=== PATIENT | female | born 1995 | race Caucasian/White ===

== ENCOUNTER 2024-06-02 13:15 | Emergency (ER) | payer BC ==
--- NOTE | 2024-06-02 13:27 | ERPHSYRPT ---
- History of Present Illness Time Seen by Provider: 06/02/24 13:27 Source: patient Exam Limitations: no limitations Physician History: This is a 28-year-old white female patient of provider Chadd who has had chronic right jaw pain with suspected infection and who is undergoing an outpatient submandibular right node biopsy on 06/04/2024 and presents today with worsening left jaw pain over the last 2 weeks. Overall, the patient has had these symptoms of jaw pain, first on the right side approximately 1 month ago and now on the left side in the last 2 weeks. Patient has been on several different antibiotics over this timeframe. Patient drove herself into the emergency department today and does not want any narcotics. Patient has a history of anxiety. She has not had fever, night sweats or chills. Timing/Duration: gradual onset Severity: mild Prearrival Treatment: no prearrival treatment Modifying Factors: Improves With: nothing Associated Symptoms: jaw pain (Bilateral), No tooth pain Allergies/Adverse Reactions: dexamethasone Allergy (Verified 06/02/24 13:25) Difficulty Breathing Home Medications: Buspirone HCl 5 mg [Buspar 5 mg] 10 mg PO DAILY 06/02/24 [History] Pnv No.95/Ferrous Fum/Folic AC [ Vitamins Tablet] 1 tab PO DAILY 06/02/24 [History] Travel Risk - International Travel Have you traveled outside of the country in past 3 weeks: No - Emerging Infectious Disease Are you exhibiting symptoms associated with any current EIDs: No - Review of Systems Constitutional: No Symptoms Eyes: No Symptoms Ears, Nose, & Throat: No Symptoms, Other (Bilateral jaw pain.), No Mouth Pain, No Throat Pain, No Hoarse, No Painful Swallowing, No Stridor Respiratory: No Symptoms Cardiac: No Symptoms Abdominal/Gastrointestinal: No Symptoms Genitourinary Symptoms: No Symptoms Musculoskeletal: No Symptoms Skin: No Symptoms Neurological: No Symptoms Psychological: No Symptoms Endocrine: No Symptoms Hematologic/Lymphatic: No Symptoms Immunological/Allergic: No Symptoms All Other Systems: Reviewed and Negative - Past Medical History Pertinent Past Medical History: No Psycho-Social History: Anxiety - Nursing Vital Signs Nursing Vital Signs: Initial Vital Signs Temperature 97.7 F 06/02/24 13:20 Pulse Rate 71 06/02/24 13:20 Respiratory Rate 18 06/02/24 13:20 Blood Pressure 133/90 06/02/24 13:20 O2 Sat by Pulse Oximetry 99 06/02/24 13:20 Pain Scale Pain Intensity 8 - Physical Exam General Appearance: no apparent distress, alert, anxiety Eye Exam: bilateral eye: normal inspection, PERRL, EOMI Ear Exam: bilateral ear: auricle normal Nasal Exam: normal inspection Throat Exam: normal, moist mucus membranes, No pharynx normal, No dental tenderness Neck Exam: lymphadenopathy (R) (Questionable right submandibular), No lymphadenopathy (L) Cardiovascular/Respiratory Exam: chest non-tender, no respiratory distress Abdominal Exam: non-tender Neurologic Exam: alert, oriented x 3, sensation nml Skin Exam: normal color, warm, dry SpO2 Interpretation: normal O2 Delivery: Room Air - Course Nursing assessment & vital signs reviewed: Yes Ordered Tests: Active Orders 24 hr Category Date Time Status FACIAL BONES WO CONTRAST [CT] Stat Exams 06/02/24 13:27 Completed NECK WO CONTRAST [CT] Stat Exams 06/02/24 13:28 Completed Medication Summary Discontinued Medications Generic Name Dose Route Start Last Admin Trade Name Lor PRN Reason Stop Dose Admin Ketorolac Tromethamine 60 mg 06/02/24 13:41 06/02/24 13:56 Ketorolac Tromethamine 30 Mg/Ml Inj IM 06/02/24 13:42 60 mg STAT ONE Administration Ketorolac Tromethamine Confirm 06/02/24 13:54 Ketorolac Tromethamine 30 Mg/Ml Inj Administered 06/02/24 13:55 Dose 60 mg .ROUTE .STK-MED ONE - Progress Progress: unchanged Progress Note: 06/02/24 13:51 My medical decision making and the assignment of low complexity to this patient's medical issue today is based on review of the patient's past medical history, review of the patient's medication list, review the patient drug allergy list, history present illness and physical findings on examination The patient does not require any laboratory data. However, we will order a CT scan of the face and soft tissue of the neck both without contrast. Differential diagnosis includes but is not limited to lymphadenopathy, m andibular fractures, subcutaneous infection/abscesses 06/02/24 14:[address] scan of the facial bones was interpreted by the radiologist and I reviewed the impression. The impression states normal appearing TMJ bilaterally. No evidence of fractures. No evidence of joint effusion, degenerative changes or dislocations. Soft tissue of the face are normal. CT scan of the neck/soft tissues was interpreted by the radiologist and I reviewed the impression. The impression states bilateral neck reactive looking lymphadenopathy. Counseled pt/family regarding: diagnosis, need for follow-up, rad results Medical Desision Making - Diagnostic Testing Diagnostic test were ordered, analyzed, and reviewed by me: No Radiological Interpretation: Reviewed by me, Teleradiologist Report - Risk of complications Minimal Risk: Minimal risk of morbidity - Departure Departure Disposition: Home Clinical Impression: Submandibular lymphadenopathy Condition: Stable Critical Care Time: No Referrals: EMMA CONDON FNP [Primary Care Provider] - Follow up/PCP as directed Additional Instructions: Drink plenty of fluids. Use Tylenol and ibuprofen for pain control. Follow-up with your primary care provider, ENT specialist or other specialist involved and the workup of known lymphadenopathy.
[2024-06-02 13:45] VITALS: RESP 18; TEMP 97.7
[2024-06-02] MEDS ORDERED: TORAdol 30 mg Injection ONE (13:54)
[2024-06-02] MEDS: TORAdol 30 mg Injection IM ONE (13:56)
--- NOTE | 2024-06-02 14:34 | XRAY ---
CLINICAL HISTORY: Bilateral jaw pain; adenopathy COMPARISON: None. TECHNIQUE: CT scan of the neck was performed without administration of intravenous contrast. Sagittal and coronal reconstructions were obtained. One of the following dose reduction techniques were utilized for this exam: Automated exposure control, adjustment of the mA and/or kV according to patient size, and use of iterative reconstruction. FINDINGS: Nasopharynx: Normal size and appearance. No masses. Oropharynx: Normal size and appearance. No masses. Larynx and Hypopharynx: Normal appearance of the laryngeal structures. Vocal cords are normal in appearance and movement. No masses. Thyroid Gland: Normal size and morphology. No nodules or masses. Salivary Glands: Parotid, submandibular, and sublingual glands are normal in size and appearance. No evidence of sialadenitis or masses. Lymph Nodes: Right side submandibular lymph node noted measuring 22 x14 mm, with mild surrounding fatty stranding noted. Bilateral neck reactive-looking lymphadenopathy. Vascular Structures: Normal appearance of the carotid arteries, jugular veins, and other major vessels. No evidence of vascular malformations or aneurysms. Soft Tissues: Normal appearance of the soft tissues of the neck. No abnormal masses, swelling, or fluid collections. Bones: Normal appearance of the cervical spine and surrounding bony structures. No fractures, lytic or sclerotic lesions. Airway: Trachea and main bronchi are patent. No evidence of tracheal or bronchial stenosis or masses. IMPRESSION: Right side submandibular lymph node noted measuring 22 x14 mm, with mild surrounding fatty stranding noted. DD Reactive, Ultrasound correlation advised. Bilateral neck reactive-looking lymphadenopathy. Electronically Signed by: Lilia Heaton MD. (06/02/2024 14:30:45 EDT)
--- NOTE | 2024-06-02 14:52 | XRAY ---
CLINICAL HISTORY: Bilateral jaw pain; adenopathy COMPARISON: None. TECHNIQUE: Non-Contrast CT scan of the facial bones was performed, with sagittal and coronal multiplanar reconstruction. One of the following dose reduction techniques were utilized for this exam: Automated exposure control, adjustment of the mA and/or kV according to patient size, and use of iterative reconstruction. FINDINGS: Sinuses: All paranasal sinuses are clear. No evidence of sinusitis, mucosal thickening, or fluid levels. Osteomeatal complexes are patent. Nasal Cavity: Nasal cavity is unremarkable. No masses, polyps, or deviations. Orbits: Orbits are normal in size and shape. Extraocular muscles and optic nerves are normal. No evidence of orbital masses or proptosis. Maxilla and Mandible: Normal appearance of the maxillary and mandibular bones. No fractures, lytic or sclerotic lesions. Normal dentition without significant periodontal disease. Facial Bones: No fractures or deformities. Zygomatic arches, nasal bones, and other facial structures are intact. Soft Tissues: Soft tissues of the face are normal. Temporomandibular Joints (TMJ): Normal appearance of the TMJ bilaterally. No evidence of joint effusion, degenerative changes, or dislocation. IMPRESSION: Normal CT of the maxillofacial region without contrast. Electronically Signed by: Lilia Heaton MD. (06/02/2024 14:49:14 EDT)
[2024-06-02 15:13] VITALS: BP 102/60; PULSE 64; O2SAT 98
== END 2024-06-02 15:21 | disposition home or self-care (01) ==
LOC: ED 13:15
DX: R59.0 Localized enlarged lymph nodes (principal); R68.84 Jaw pain; Z79.899 Other long term (current) drug therapy
CPT/HCPCS: 70486; 70490; 96372; 99284; J1885